=== PATIENT | female | born 1955 | race Caucasian/White ===

== ENCOUNTER 2016-09-26 22:36 | Emergency (ER) | payer BC ==
[~2016-09-26] VITALS: Ht 152.4 cm; Wt 57.0 kg
[~2016-09-26 22:36] MED LIST: CARI350T29 PO; HYD25 PO; IBUP-1542 PO; LISI10TA2 PO; MTF1000T PO
[2016-09-26 22:42] VITALS: Ht 152.4 cm; Wt 57.0 kg
--- NOTE | 2016-09-26 23:38 | RADRPT ---
PROCEDURE: XR Chest. CLINICAL INDICATION: Chest pain. TECHNIQUE: AP Portable chest. COMPARISON: 08/07/2015 chest x-ray FINDINGS: The soft tissues and bones are remarkable for multiple EKG leads superimposed over the chest wall. Thoracic spondylosis is present with bilateral acromioclavicular osteoarthropathy. No focal infiltr ates, masses, or effusions are noted. The mediastinum and heart are normal. No pneumothorax is pre sent. IMPRESSION: 1. No radiographic evidence for acute cardiopulmonary disease 2. Mild atherosclerotic vascular disease 3. Thoracic spondylosis and bilateral acromioclavicular osteoarthropathy. RPTAT: HDC .Akosua Montano MD, Date Time Electronically viewed and signed by .Akosua Montano MD, on 09/26/2016 23:37 .C/
--- NOTE | 2016-09-26 23:55 | ERD ---
ER Documentation Chief Complaint Date/Time DATE: 09/26/16 TIME: 23:54 Chief Complaint htn at home: 177/111, took lisinopril 10mg at 2200, resolved. HPI 61-year-old female who comes in with complaints of elevated blood pressure at home. She said it was 177 of 111 in the lisinopril. Denies any chest pain palpitations fevers chills nausea vomiting. ROS All systems reviewed and are negative except as per history of present illness. Medications Home Meds Active Scripts Lisinopril* (Lisinopril*) 10 Mg Tablet, 10 MG PO DAILY, #30 TAB Prov:MICHAEL PIERCE PA-C 10/01/15 Ibuprofen* (Motrin*) 600 Mg Tab, 600 MG PO Q8, #20 TAB Prov:NIARJ MAHMOOD 08/07/15 Hydrochlorothiazide* (Hydrochlorothiazide*) 25 Mg Tab, 25 MG PO DAILY, #30 TAB Prov:NIRAJ MAHMOOD 08/07/15 Reported Medications Carisoprodol* (Carisoprodol*) 350 Mg Tablet, 350 MG PO Q8 Y for MUSCLE SPASMS, TAB 07/15/15 Metformin* (Glucophage*) 1,000 Mg Tablet, 1000 MG PO BID, #60 TAB 07/15/15 Allergies Allergies: Coded Allergies: No Known Allergy (Unverified , 08/07/15) PMhx/Soc History of Surgery: Yes ( X3, HYSTERECTOMY) Anesthesia Reaction: No Hx Neurological Disorder: No Hx Respiratory Disorders: No Hx Cardiac Disorders: Yes (HTN) Hx Psychiatric Problems: No Hx Miscellaneous Medical Probl: Yes (DM) Hx Alcohol Use: No Hx Substance Use: No Hx Tobacco Use: No Smoking Status: Never smoker Physical Exam Vitals Vital Signs Date Time Temp Pulse Resp B/P Pulse Ox O2 Delivery O2 Flow Rate FiO2 09/26/16 22:42 97.9 63 18 153/77 99 Physical Exam Const: [] Head: Atraumatic Eyes: Normal Conjunctiva ENT: Normal External Ears, Nose and Mouth. Neck: Full range of motion..~ No meningismus. Resp: Clear to auscultation bilaterally Cardio: Regular rate and rhythm, no murmurs Abd: Soft, non tender, non distended. Normal bowel sounds Skin: No petechiae or rashes Back: No midline or flank tenderness Ext: No cyanosis, or edema Neur: Awake and alert Psych: Normal Mood and Affect Results 24 hrs Laboratory Tests Test 09/26/16 22:55 Bedside Glucose 134mg/dL Procedures/MDM EKG: Rate/Rhythm: Normal Sinus Rhythm QRS, ST, T-waves: No changes consistent w/ acute ischemia Impression: No evidence of ischemia or arrhythmia Chest X-ray 1V Interpreted by me: Soft Tissue: No acute abnormalities Bones: No acute abnormalities Mediastinum/Cardiac Silhouette/Lungs: No acute abnormalities Patient's blood pressure was elevated (>120/80) but appears stable without evidence of hypertension emergency or urgency. The patient was counseled about the risks of hypertension and urged to pursue outpatient monitoring and therapy within a week with their primary care physician. Departure Diagnosis: Primary Impression: Hypertensive urgency Condition: Stable CAITLIN MART Sep 26, 2016 23:55
[2016-09-27] MEDS ORDERED: AMO500 PO (00:05)
[2016-09-27 00:10] VITALS: BP 156/81; PULSE 71; RESP 20
== END 2016-09-27 00:12 | disposition home or self-care (01) ==
LOC: E/R 22:36
DX: I16.0 Hypertensive urgency (principal); E11.9 Type 2 diabetes mellitus without complications; Z79.84 Long term (current) use of oral hypoglycemic drugs
CPT/HCPCS: 71010; 82962; 93005

== ENCOUNTER 2017-01-05 21:07 | Emergency (ER) | payer BC ==
[~2017-01-05] VITALS: Ht 160 cm; Wt 58.0 kg
[~2017-01-05 21:07] MED LIST changes: +AMOX500C2 PO; -CARI350T29 PO; -HYD25 PO
[2017-01-05 21:09] VITALS: Ht 160 cm; Wt 58.0 kg
[2017-01-05 21:35] VITALS: BP 157/82; PULSE 68; RESP 20; TEMP 97.1
[2017-01-05] MEDS ORDERED: SOD CHLORIDE 0.9% 500 ML IV STA (21:54)
[2017-01-05 22:07] LABS: BASOPHILS % 0.5 % (0.0-2.0); EOSINOPHILS # 0.6 10^3/ul (0.0-0.5); EOSINOPHILS % 7.7 % (0.0-7.0); HEMATOCRIT 40.7 % (37.0-47.0); HEMOGLOBIN 13.9 g/dl (12.0-16.0); LYMPHOCYTES # 2.3 10^3/ul (0.8-2.9); LYMPHOCYTES % 28.2 % (15.0-51.0); MEAN CORPUSCULAR HEMOGLOBIN 28.4 pg (29.0-33.0); MEAN CORPUSCULAR HGB CONC 34.2 g/dl (32.0-37.0); MEAN CORPUSCULAR VOLUME 83.2 fl (82.0-101.0); MEAN PLATELET VOLUME 9.6 fl (7.4-10.4); MONOCYTE # 0.5 10^3/ul (0.3-0.9); MONOCYTES % 5.8 % (0.0-11.0); NEUTROPHIL # 4.7 10^3/ul (1.6-7.5); NEUTROPHILS % 57.6 % (39.0-77.0); PLATELET COUNT 260 10^3/UL (140-415); RED BLOOD COUNT 4.89 10^6/ul (4.20-5.40); WHITE BLOOD COUNT 8.1 10^3/ul (4.8-10.8)
[2017-01-05 22:30] LABS: ANION GAP 16 (8-16); BLOOD UREA NITROGEN 11 mg/dl (7-20); CALCIUM 9.4 mg/dl (8.4-10.2); CARBON DIOXIDE 27 mmol/L (21-31); CHLORIDE 101 mmol/L (97-110); CREATININE 0.58 mg/dl (0.44-1.00); GLUCOSE 162 mg/dl (70-220); POTASSIUM 3.7 mmol/L (3.5-5.1); SODIUM 140 mmol/L (135-144)
[2017-01-05] MEDS ORDERED: METF500T4 PO (22:42)
[2017-01-05 22:43] LABS: TROPONIN-I < 0.012 ng/ml (0.00-0.12)
--- NOTE | 2017-01-05 23:05 | RADRPT ---
PROCEDURE: XR Chest. CLINICAL INDICATION: Chest pain. TECHNIQUE: AP Portable chest. COMPARISON: 08/07/2015 FINDINGS: The cardiomediastinal silhouette is normal. The lungs are clear. The osseous structures are unrema rkable. IMPRESSION: No acute findings. RPTAT: HIKT .Gamaliel Brownlee MD, MD Date Time Electronically viewed and signed by .Gamaliel Brownlee MD, on 01/05/2017 23:05 .T/
[2017-01-05 23:35] LABS: ADD UMIC NO; UR ASCORBIC ACID NEGATIVE (NEGATIVE); UR BILIRUBIN (Dip) NEGATIVE (NEGATIVE); UR BLOOD (Dip) NEGATIVE (NEGATIVE); UR CLARITY CLEAR (CLEAR); UR COLOR COLORLESS (YELLOW); UR GLUCOSE (Dip) NEGATIVE (NEGATIVE); UR KETONES (Dip) NEGATIVE (NEGATIVE); UR LEUKOCYTE ESTERASE (Dip) NEGATIVE Leu/ul (NEGATIVE); UR NITRITE (Dip) NEGATIVE (NEGATIVE); UR SPECIFIC GRAVITY (Dip) 1.001 (1.003-1.030); UR TOTAL PROTEIN (Dip) NEGATIVE (NEGATIVE); UR UROBILINOGEN (Dip) NEGATIVE (NEGATIVE)
--- NOTE | 2017-01-06 00:17 | ERD ---
ER Documentation Chief Complaint Date/Time DATE: 01/06/17 TIME: 00:13 Chief Complaint weakness x 1 day HPI 61-year-old female presenting with generalized weakness that started today. She also felt some discomfort in her chest that she cannot describe. She states that now she feels better. She denies any chest pain, shortness of breath, headache, dizziness, abdominal pain, fever, chills, vomiting or diarrhea. She thinks that might have been anxiety. ROS All systems reviewed and are negative except as per history of present illness. Medications Home Meds Reported Medications Metformin Hcl* (Metformin Hcl*) 500 Mg Tablet, 500 MG PO WITH MEALS, #90 TAB 01/05/17 Discontinued Reported Medications Amoxicillin* (Amoxicillin*) 500 Mg Cap, 500 MG PO Q8, #30 CAP 09/27/16 Metformin* (Glucophage*) 1,000 Mg Tablet, 1000 MG PO BID, #60 TAB 07/15/15 Discontinued Scripts Lisinopril* (Lisinopril*) 10 Mg Tablet, 10 MG PO DAILY, #30 TAB Prov:MICHAEL PIERCE PA-C 10/01/15 Ibuprofen* (Motrin*) 600 Mg Tab, 600 MG PO Q8, #20 TAB Prov:NIRAJ MAHMOOD 08/07/15 Allergies Allergies: Coded Allergies: No Known Allergy (Unverified , 01/05/17) PMhx/Soc History of Surgery: Yes ( X3, HYSTERECTOMY) Anesthesia Reaction: No Hx Neurological Disorder: No Hx Respiratory Disorders: No Hx Cardiac Disorders: Yes (HTN) Hx Psychiatric Problems: No Hx Miscellaneous Medical Probl: Yes (DM) Hx Alcohol Use: No Hx Substance Use: No Hx Tobacco Use: No Smoking Status: Never smoker FmHx Family History: No diabetes Physical Exam Vitals Vital Signs Date Time Temp Pulse Resp B/P Pulse Ox O2 Delivery O2 Flow Rate FiO2 01/05/17 21:35 97.1 68 20 157/82 100 Room Air 01/05/17 21:09 97.1 68 20 164/78 98 Physical Exam Const: Well-appearing, no apparent distress Head: Atraumatic Eyes: Normal Conjunctiva, PERRLA, EOMI ENT: Normal External Ears, Nose and Mouth. Neck: Full range of motion..~ No meningismus. Resp: Clear to auscultation bilaterally Cardio: Regular rate and rhythm, no murmurs. 2+ distal pulses Abd: Soft, non tender, non distended. Normal bowel sounds Skin: No petechiae or rashes Back: No midline or flank tenderness Ext: No cyanosis, or edema Neur: Awake and alert, oriented 3, cranial nerves intact, strength and sensations intact in all 4 extremities, normal gait Psych: Normal Mood and Affect Result Diagram: 01/05/17213901/05/172139 Results 24 hrs Laboratory Tests Test 01/05/17 21:40 01/05/17 21:52 01/05/17 23:12 White Blood Count 8.110^3/ul Red Blood Count 4.8910^6/ul Hemoglobin 13.9g/dl Hematocrit 40.7% Mean Corpuscular Volume 83.2fl Mean Corpuscular Hemoglobin 28.4pg Mean Corpuscular Hemoglobin Concent 34.2g/dl Red Cell Distribution Width 12.0% Platelet Count 48432^3/UL Mean Platelet Volume 9.6fl Neutrophils % 57.6% Lymphocytes % 28.2% Monocytes % 5.8% Eosinophils % 7.7% Basophils % 0.5% Nucleated Red Blood Cells % 0.0/100WBC Neutrophils # 4.710^3/ul Lymphocytes # 2.310^3/ul Monocytes # 0.510^3/ul Eosinophils # 0.610^3/ul Basophils # 0.010^3/ul Nucleated Red Blood Cells # 0.010^3/ul Sodium Level 140mmol/L Potassium Level 3.7mmol/L Chloride Level 101mmol/L Carbon Dioxide Level 27mmol/L Anion Gap 16 Blood Urea Nitrogen 11mg/dl Creatinine 0.58mg/dl Glucose Level 162mg/dl Calcium Level 9.4mg/dl Troponin I < 0.012ng/ml Bedside Glucose 154mg/dL Urine Color COLORLESS Urine Clarity CLEAR Urine pH 7.0 Urine Specific [place] 1.001 Urine Ketones NEGATIVEmg/dL Urine Nitrite NEGATIVEmg/dL Urine Bilirubin NEGATIVEmg/dL Urine Urobilinogen NEGATIVEmg/dL Urine Leukocyte Esterase NEGATIVELeu/ul Urine Hemoglobin NEGATIVEmg/dL Urine Glucose NEGATIVEmg/dL Urine Total Protein NEGATIVEmg/dl Current Medications Medications (Trade) Dose Ordered Sig/Za Route PRN Reason Start Time Stop Time Status Last Admin Dose Admin Sodium Chloride (NS) 500 ml @ 500 mls/hr Q1H STAT IV 01/05/17 21:54 01/05/17 22:53 DC 01/05/17 21:59 Procedures/MDM Labs CBC: no anemia or evidence of infection CMP: No evidence of electrolyte abnormality, renal failure, hypoglycemia, liver failure, or biliary obstruction Lipase: no evidence of pancreatitis Troponin within normal limits Lactate within normal limits UA: no evidence of infection EKG: Rate/Rhythm: Normal sinus rhythm QRS, ST, T-waves: No changes consistent w/ acute ischemia Impression: No evidence of ischemia or arrhythmia Chest x-ray shows no significant abnormalities Patient is presenting with generalized weakness with symptoms now resolved. Her vitals are stable and she is afebrile. I have a low suspicion for stroke, intracranial hemorrhage, ACS, sepsis, pulmonary embolism or aortic dissection. There are no significant electrolyte abnormalities and her troponin is within normal limits with a nonischemic EKG. Believe the patient is stable for discharge at this time as she feels much better and has remained hemodynamically stable while here. Return precautions were given. I recommended follow-up with her primary care doctor which she states she already has scheduled. Departure Diagnosis: Primary Impression: Generalized weakness Condition: Stable Patient Instructions: Weakness, Unk Cause Additional Instructions: Regresa a la angelica de emergencias si florentin sintomas estan empeorando. JODI CHAIREZ MD Jan 06, 2017 00:17
== END 2017-01-06 00:43 | disposition home or self-care (01) ==
LOC: E/R 21:07
DX: R53.1 Weakness (principal); I10 Essential (primary) hypertension; Z79.84 Long term (current) use of oral hypoglycemic drugs
CPT/HCPCS: 36415; 71010; 80048; 81003; 82962; 84484; 85025; 93005; 99285; J7040

== ENCOUNTER 2017-11-30 20:12 | Observation (INO) | END 2017-12-01 17:25 | disposition home or self-care (01) ==